=== PATIENT | male | born 1955 | race Caucasian/White ===

== ENCOUNTER → 2019-08-05 | Outpatient (CLI) | payer MEDICARE, OTHER ==
[~2019-08-05] MED LIST: CONTRAST GIVEN MC PRN; IOHEXOL 300 MG/ML 75 ML VIAL. IV ONE
--- NOTE | 2019-08-05 17:36 | RAD ---
CT SOFT TISSUE NECK W/CONTRAST Indication: Left side neck swelling Exposure: One or more of the following individualized dose reduction techniques were utilized for this examination: 1. Automated exposure control 2. Adjustment of the mA and/or kV according to patient size 3. Use of iterative reconstruction technique. Technique: Standard imaging obtained after intravenous contrast administration. Comparison: None FINDINGS: Visualized orbits unremarkable. Technique nonprotocoled for intracranial exam but no obvious mass effect or midline shift. Visualized arterial structures appear grossly patent. Thyroid appears symmetric without dominant mass. Mucosal thickening within the left maxillary sinus, mild. No fluid levels are seen within the visualized sinuses. Airway is patent and midline. No evidence of tonsillar enlargement. Parapharyngeal soft tissues appear symmetric with intact fat planes. No abnormal fluid collection is identified. The parotid glands and submandibular glands appear symmetric. No evidence of pathologic lymph node enlargement. No evidence of focal soft tissue infiltration or swelling is seen. A specific area of concern is not indicated on the scan. No evidence of bone destruction. Temporomandibular joints are intact. Mild cervical spondylosis. No soft tissues demonstrate no abnormal swelling. IMPRESSION: 1. No significant abnormality is identified in the neck. 2. Mild left maxillary sinus disease. Electronically signed by: Crow Bingham MD (08/05/2019 5:33 PM) [facility]
== END | disposition home or self-care (01) ==
LOC: CT 08:57
PROVIDERS: ATTEND Student in an Organized Health Care Education/Training Program
DX: Z01.812 Encounter for preprocedural laboratory examination (principal); M47.812 Spondylosis without myelopathy or radiculopathy, cervical region; J32.0 Chronic maxillary sinusitis
CPT/HCPCS: 36415; 70491; 82565; Q9967